=== PATIENT | female | born 1950 | race Caucasian/White ===

== ENCOUNTER 2018-04-21 17:06 | Emergency (ER) | payer OTHER ==
[~2018-04-21] VITALS: Ht 165.1 cm; Wt 60.8 kg
[2018-04-21] MEDS ORDERED: JANUVIA25 MG (17:34)
[2018-04-21] MEDS ORDERED: ATORVASTATIN CA10 MG (17:34)
[2018-04-21] MEDS ORDERED: GLIMEPIRIDE4 MG (17:34)
[2018-04-21] MEDS ORDERED: LOSARTAN-HCTZ1 EACH (17:35)
== END 2018-04-21 20:03 | disposition home or self-care (01) ==
LOC: ER 17:06
DX: R06.09 Other forms of dyspnea (principal); F32.89 Other specified depressive episodes

== ENCOUNTER 2022-04-01 11:04 | Emergency (ER) | payer OTHER ==
[~2022-04-01] VITALS: Ht 165.1 cm; Wt 65.8 kg
[~2022-04-01 11:04] MED LIST: ATORVASTATIN CA10 MG; GLIMEPIRIDE4 MG; JANUVIA25 MG; LOSARTAN-HCTZ1 EACH
[2022-04-01] MEDS ORDERED: LEVOTHYROXINE50 MCG PO (11:20)
[2022-04-01] MEDS ORDERED: DELSYM COUGH+C180 ML PO (16:14)
[2022-04-01] MEDS ORDERED: ALLER-TEC10 MG PO (16:14)
== END 2022-04-01 17:04 | disposition home or self-care (01) ==
LOC: ER 11:04
DX: J06.9 Acute upper respiratory infection, unspecified (principal); E11.9 Type 2 diabetes mellitus without complications; Z79.4 Long term (current) use of insulin; I10 Essential (primary) hypertension; E03.9 Hypothyroidism, unspecified

== ENCOUNTER 2023-10-03 15:29 | Emergency (ER) | payer OTHER ==
[~2023-10-03] VITALS: Ht 165.1 cm; Wt 60.8 kg
[~2023-10-03 15:29] MED LIST changes: +ALLER-TEC10 MG PO; +DELSYM COUGH+C180 ML PO; +LEVOTHYROXINE50 MCG PO
[2023-10-03] MEDS ORDERED: JANUVIA100 MG PO (16:36)
[2023-10-03] MEDS ORDERED: HYDROCODONE/CHLORPHEN P-STIREX 5 ML ML PO STA (19:52)
== END 2023-10-03 20:15 | disposition home or self-care (01) ==
LOC: ER 15:30
DX: B00.1 Herpesviral vesicular dermatitis (principal)